=== PATIENT | female | born 1975 | race Caucasian/White ===

== ENCOUNTER 2016-11-26 14:56 | Inpatient (IN) | payer OTHER ==
[~2016-11-26] VITALS: Ht 165.1 cm; Wt 169.8 kg
--- NOTE | ~2016-11-26 | ST ---
[place], [place] EXERCISE STRESS TEST REPORT [facility]: [id number] UNIT #: [id number] ROOM: 503 DOCTOR: USMAN PEDROZA MD BIRTHDATE: [birth year] DOS: 11/27/2016 EXERCISE MYOCARDIAL PERFUSION STRESS TEST INDICATIONS: Precordial chest pain. PROCEDURE: The patient exercised on a full Matt protocol stress test for 5 minutes 15 seconds and achieved a maximum heart rate of 154, which represented 86% of her maximum predicted heart rate at a workload of 5 mets. She stopped for leg fatigue and dyspnea. She did not recreate her chest pain. Her resting electrocardiogram showed sinus rhythm and was a normal tracing. She did not have any diagnostic electrocardiographic changes with exertion. Her resting blood pressure of 112/72 aydee to 162/60 with exertion. One minute prior to completion of exercise protocol, she was given radionuclide intravenously. IMPRESSION: 1. Limited exercise capacity for age. The patient did achieve 86% of her maximum predicted heart rate and did not have chest pain or diagnostic electrocardiographic changes. 2. Nuñez treadmill score 5.25 consistent with a low risk of cardiac events in the next year. 3. Radionuclide injected. Please see the separate imaging report for further details of the patient's stress test results. USMAN PEDROZA MD CM:STRESS:EXERCISE STRESS TEST REPORT [id number] USMAN PEDROZA MD
--- NOTE | ~2016-11-26 | CON ---
[place], [place] REPORT OF CONSULTATION [id number] UNIT #: [id number] ROOM: 503 DOCTOR: USMAN PEDROZA MD BIRTHDATE: [birth year] DOS: 11/27/2016 CARDIOLOGY CONSULTATION The patient was seen at her bedside today on 11/27/2016 for evaluation of chest pain. CHIEF COMPLAINT: Left anterior chest discomfort. HISTORY OF PRESENT ILLNESS: The patient is a 40-year-old woman who has no previous history of heart disease. She does have several risk factors including type 2 diabetes mellitus and hypertension. She states that for several months or perhaps even years, she has had episodes of left anterior chest discomfort. She has a hard time describing the sensation. She states that she feels a tightness or fluttering sensation in her left chest. Occasionally, she will be pale and sweaty with this. It is occasionally sharp. It can last anywhere from seconds to all day. Yesterday while at work, she had several episodes, coworkers noted that she was uncomfortable and she was seen by the nurse at her place of employment. Her blood pressure was elevated and she was told to come to the Emergency Room. Upon arrival, her heart rate was 100 and blood pressure was 211/106. She was complaining of chest discomfort and dyspnea and therefore was admitted to the hospital for further assessment. PAST MEDICAL HISTORY: Includes; 1. Morbid obesity. The patient's current body mass index is 62.3 and she weighs 374 pounds. 2. Obstructive sleep apnea. The patient has a CPAP machine, but does not use it. 3. Type 2 diabetes mellitus. 4. Essential hypertension. 5. Tobacco abuse. The patient does smoke 1 pack of cigarettes a day. PAST SURGICAL HISTORY: History of cholecystectomy and previous section. REVIEW OF SYSTEMS: The patient denies diplopia, loss of vision or focal weakness. She denies syncope, although she does have occasional lightheadedness. She denies nausea or vomiting. She denies fevers, chills or sweats. She denies any recent weight change. She denies hemoptysis or hematemesis. She denies productive cough. She denies change in bowel or bladder habits and denies blood in her stools or urine. She denies any skin rashes. She denies any swelling in her arms, but she does have chronic ankle edema. She does note that she sleeps in a chair or in a recliner. The remainder of the review of systems is negative except as noted above. FAMILY HISTORY: There is no family history of early coronary disease. SOCIAL HISTORY: The patient lives alone. She works at a correctional facility, doing education including drug resistance, etc. [place], [place] REPORT OF CONSULTATION NAME: JENNIFER MEDLEY UNIT #: [id number] ROOM: [facility] DOCTOR: USMAN PEDROZA MD BIRTHDATE: [birth year] MEDICATIONS: The patient has no prescribed medications at this point because she has stopped going to physicians. She occasionally uses [id number] essential oils for headaches, etc. ALLERGIES: She has no known drug allergies. PHYSICAL EXAMINATION: GENERAL: The patient is an overweight white female who is awake, alert and oriented. VITAL SIGNS: Pulse is 80 and regular, blood pressure is 112/70. She is afebrile. She weighs 169.8 kg and has a body mass index of 62.3. HEENT: Normocephalic, atraumatic. Extraocular muscles are intact. Sclerae are clear. Pupils are equal, round and reactive to light. The oral mucosa is moist. Tongue is midline. NECK: Supple. She has no jugular distention or hepatojugular reflux. Carotids are full. I heard no bruits. She had no neck or supraclavicular masses. No thyromegaly. LUNGS: Respirations are unlabored. CHEST: Clear to auscultation and percussion. She has no presacral edema or chest wall tenderness. HEART: Has a regular rhythm. She has a fourth heart sound, but no third heart sound or murmur. The PMI is not displaced. She has no precordial heave, lift or thrill. ABDOMEN: Obese, but otherwise benign without masses, organomegaly or bruits. I could not reproduce her chest pain by palpation of her chest or her abdomen. EXTREMITIES: Showed no clubbing or cyanosis. She does have 1+ ankle edema present. Pedal pulses are full and equal bilaterally. LABORATORY DATA: I reviewed her EKG. It shows sinus rhythm and is essentially a normal tracing. Chest x-ray was normal. Serial cardiac biomarkers were unremarkable. Hemoglobin is 12.8, hematocrit 40.9, there are 8900 white cells, 311,000 platelets. Sodium 141, potassium 4.1, BUN 11, creatinine 0.71. Sugar was 159, hemoglobin A1c 7.6. TSH is normal at 2.23. A drug screen was negative for opiates, cannabinoids or cocaine. IMPRESSION: 1. Atypical chest pain. The patient's pains have been longstanding and unrelated to exertion. They come and go without provocation and there is no particular pattern to them. On the other hand, she does have multiple risk factors for heart disease and therefore, even though these seem unlikely to be cardiac in origin. A further cardiac workup and stress testing are appropriate. 2. Morbid obesity. 3. Tobacco abuse. 4. Essential hypertension exacerbated by obesity. 5. Type 2 diabetes mellitus, exacerbated by obesity. PLAN: I agree with the patient's medical care. I would stop furosemide because [place], [place] REPORT OF CONSULTATION NAME: JENNIFER MEDLEY UNIT #: [id number] ROOM: [facility] DOCTOR: USMAN PEDROZA MD BIRTHDATE: [birth year] I do not believe that she actually has heart failure. I do believe that she has dependent edema from her obesity and probably from her sleep apnea. I did encourage her to take medications as prescribed and to use her CPAP machine as prescribed as well. We will evaluate her further with a stress test and echocardiogram. I strongly encouraged her to quit smoking. Further recommendations will depend upon the results of her testing. I thank the hospitalist physicians for asking our advice regarding her care. USMAN PEDROZA MD CM:CONSTR:REPORT OF CONSULTATION 1146 11/28/16 0334 interface
[2016-11-26 15:07] VITALS: BP 211/106
[2016-11-26 15:31] LABS: BASO % 0.4 % (0.0-1.0); EOS # 0.2 10*3/uL (0.0-0.4); EOS % 1.9 % (1.0-4.0); HEMATOCRIT 40.9 % (37.0-47.0); HEMOGLOBIN 13.2 g/dl (12.0-16.0); LYMPH # 3.2 10*3/uL (1.3-4.4); LYMPH % 30.6 % (27.0-41.0); MEAN CORPUSCULAR HGB 27.4 pg (27.0-31.0); MEAN CORPUSCULAR HGB CONC 32.3 g/dl (33.0-37.0); MEAN PLATELET VOLUME 9.6 fl (9.6-12.3); MONO # 0.6 10*3/uL (0.1-1.0); MONO % 6.1 % (3.0-9.0); NEUT # 6.4 10*3/uL (2.3-7.9); NEUT % 60.7 % (47.0-73.0); PLATELET COUNT AUTOMATED 315 10*3/uL (130-400); RED BLOOD COUNT 4.81 10*6/uL (4.10-5.10); RED CELL DISTRI WIDTH 14.6 % (0-14.5); WHITE BLOOD COUNT 10.5 10*3/uL (4.8-10.8)
[2016-11-26 15:40] LABS: INTERNATIONAL NORM RATIO 0.9 (2.0-3.5); PROTHROMBIN TIME 9.8 SECONDS (9.0-12.4)
[2016-11-26 15:43] VITALS: BP 132/78
[2016-11-26 15:48] LABS: ALBUMIN 3.1 gm/dl (3.1-4.5); ALKALINE PHOSPHATASE 101 U/L (45-117); BILIRUBIN, TOTAL 0.3 mg/dl (0.2-1.0); BUN 12 mg/dl (7-24); CARBON DIOXIDE 28 mmol/L (21-32); CHLORIDE 103 mmol/L (98-107); EST GLOM FILT AFRICAN AMERICAN > 60 ml/min; GLUCOSE 153 mg/dL (65-99); POTASSIUM 3.8 mmol/L (3.5-5.1); SGOT/AST 28 IU/L (3-35); SGPT/ALT 39 U/L (12-78); SODIUM 139 mmol/L (136-145); TOTAL PROTEIN 7.5 gm/dL (6.4-8.2)
[2016-11-26 15:49] LABS: TROPONIN I < 0.015 ng/ml (<0.045)
[2016-11-26 17:21] VITALS: BP 157/92
[2016-11-26] MEDS ORDERED: LASIX20 MG PO (17:38)
[2016-11-26] MEDS ORDERED: METFORMIN500 MG PO (17:39)
[2016-11-26 18:35] LABS: CPK 46 U/L (26-192)
[2016-11-26 18:37] LABS: CKMB < 0.5 ng/ml (0.5-3.6); TROPONIN I < 0.015 ng/ml (<0.045)
[2016-11-26 20:00] VITALS: BP 137/80
[2016-11-27] VITALS: BP 131/76
[2016-11-27 00:32] LABS: CKMB 0.6 ng/ml (0.5-3.6); CPK 47 U/L (26-192)
[2016-11-27 00:35] LABS: TROPONIN I < 0.015 ng/ml (<0.045)
[2016-11-27 04:05] VITALS: BP 135/67
[2016-11-27 05:57] LABS: ALBUMIN 2.9 gm/dl (3.1-4.5); ALKALINE PHOSPHATASE 88 U/L (45-117); BILIRUBIN, TOTAL 0.5 mg/dl (0.2-1.0); BUN 11 mg/dl (7-24); CARBON DIOXIDE 29 mmol/L (21-32); CHLORIDE 104 mmol/L (98-107); CHOLESTEROL 171 mg/dL (<200); CPK 34 U/L (26-192); EST GLOM FILT AFRICAN AMERICAN > 60 ml/min; GLUCOSE 159 mg/dL (65-99); HDL CHOLESTEROL 37 mg/dl (40-60); LDL CHOLESTEROL 112 mg/dL (9-159); MAGNESIUM 2.1 mg/dL (1.5-2.1); PHOSPHOROUS 3.8 mg/dL (2.5-4.9); POTASSIUM 4.1 mmol/L (3.5-5.1); SGOT/AST 31 IU/L (3-35); SGPT/ALT 34 U/L (12-78); SODIUM 141 mmol/L (136-145); TRIGLYCERIDES 108 mg/dl (<150); VLDL CHOLESTEROL 22 mg/dL (6-40)
[2016-11-27 06:00] LABS: HEMOGLOBIN A1c 7.6 % (4.8-5.6)
[2016-11-27 06:01] LABS: CKMB < 0.5 ng/ml (0.5-3.6); TROPONIN I < 0.015 ng/ml (<0.045)
[2016-11-27 06:02] LABS: BASO % 0.3 % (0.0-1.0); EOS # 0.2 10*3/uL (0.0-0.4); EOS % 2.4 % (1.0-4.0); HEMATOCRIT 40.9 % (37.0-47.0); HEMOGLOBIN 12.8 g/dl (12.0-16.0); LYMPH # 2.8 10*3/uL (1.3-4.4); LYMPH % 31.1 % (27.0-41.0); MEAN CELL VOLUME 87.2 fl (81.0-99.0); MEAN CORPUSCULAR HGB 27.3 pg (27.0-31.0); MEAN CORPUSCULAR HGB CONC 31.3 g/dl (33.0-37.0); MEAN PLATELET VOLUME 9.7 fl (9.6-12.3); MONO # 0.5 10*3/uL (0.1-1.0); MONO % 5.7 % (3.0-9.0); NEUT # 5.4 10*3/uL (2.3-7.9); NEUT % 60.1 % (47.0-73.0); PLATELET COUNT AUTOMATED 311 10*3/uL (130-400); RED BLOOD COUNT 4.69 10*6/uL (4.10-5.10); WHITE BLOOD COUNT 8.9 10*3/uL (4.8-10.8)
[2016-11-27 06:26] LABS: PROTHROMBIN TIME 10.3 SECONDS (9.0-12.4)
[2016-11-27 06:48] LABS: URINE AMPHETAMINES < 1000 (1000ng/ml); URINE BARBITURATES < 200 (200ng/ml); URINE COCAINE < 300 (300ng/ml)
[2016-11-27 06:52] LABS: VITAMIN D, 25-HYDROXY 15.4 ng/mL (30-100)
[2016-11-27 06:53] LABS: FOLIC ACID 9.33 ng/mL (>5.38)
[2016-11-27 08:00] VITALS: BP 112/70
[2016-11-27 12:00] VITALS: BP 107/65
[2016-11-27] MEDS ORDERED: HYDR12.5C PO (15:53)
[2016-11-27] MEDS ORDERED: K-TAB20 MEQ PO (15:53)
[2016-11-27] MEDS ORDERED: METFORMIN500 MG PO (15:53)
[2016-11-27 16:00] VITALS: BP 130/73
== END 2016-11-27 16:53 | disposition home or self-care (01) | DRG 205 ==
LOC: ED 14:56 → EDHOLD 16:08 → 5E 16:26
PROVIDERS: Hospitalist; Internal Medicine; Student in an Organized Health Care Education/Training Program
PROC: 3E033HZ Introduction of Radioactive Substance into Peripheral Vein, Percutaneous Approach (ICD-10-PCS; principal; 2016-11-27)
PROC: 4A02XM4 Measurement of Cardiac Total Activity, External Approach (ICD-10-PCS; principal; 2016-11-27)
DX: M94.0 Chondrocostal junction syndrome [Tietze] (principal); E43 Unspecified severe protein-calorie malnutrition; I16.1 Hypertensive emergency; Z68.44 Body mass index [BMI] 60.0-69.9, adult; Z90.49 Acquired absence of other specified parts of digestive tract; F17.210 Nicotine dependence, cigarettes, uncomplicated; E11.65 Type 2 diabetes mellitus with hyperglycemia; G47.33 Obstructive sleep apnea (adult) (pediatric); E66.01 Morbid (severe) obesity due to excess calories; Z79.84 Long term (current) use of oral hypoglycemic drugs; Z79.899 Other long term (current) drug therapy

== ENCOUNTER → 2017-01-04 | Outpatient (CLI) | payer OTHER ==
[~2017-01-04] MED LIST: HYDR12.5C PO; K-TAB20 MEQ PO; LASIX20 MG PO; METFORMIN500 MG PO
== END ==
LOC: RESCLI 03:33
DX: Z76.0 Encounter for issue of repeat prescription (principal); F32.0 Major depressive disorder, single episode, mild; F51.05 Insomnia due to other mental disorder; F34.1 Dysthymic disorder; E66.09 Other obesity due to excess calories; F17.200 Nicotine dependence, unspecified, uncomplicated; I10 Essential (primary) hypertension; E11.65 Type 2 diabetes mellitus with hyperglycemia; F41.9 Anxiety disorder, unspecified

== ENCOUNTER → 2017-02-03 | Outpatient (CLI) | payer OTHER | END | disposition home or self-care (01) | LOC: RESCLI 01:39 | DX: E11.65 Type 2 diabetes mellitus with hyperglycemia (principal); I10 Essential (primary) hypertension; F17.200 Nicotine dependence, unspecified, uncomplicated; E66.01 Morbid (severe) obesity due to excess calories; F32.9 Major depressive disorder, single episode, unspecified; G47.33 Obstructive sleep apnea (adult) (pediatric); E55.9 Vitamin D deficiency, unspecified; F41.9 Anxiety disorder, unspecified ==

== ENCOUNTER → 2017-03-03 | Outpatient (CLI) | payer BC ==
[2017-03-03 08:44] LABS: ALBUMIN 3.3 gm/dl (3.1-4.5); ALKALINE PHOSPHATASE 82 U/L (45-117); BUN 13 mg/dl (7-24); CHLORIDE 102 mmol/L (98-107); CREATININE 0.86 mg/dL (0.55-1.02); POTASSIUM 4.1 mmol/L (3.5-5.1); SGOT/AST 44 IU/L (3-35); SGPT/ALT 55 U/L (12-78); SODIUM 135 mmol/L (136-145); TOTAL PROTEIN 7.4 gm/dL (6.4-8.2)
== END | disposition home or self-care (01) ==
LOC: LAB 00:31 → RESCLI 00:31
PROVIDERS: Internal Medicine Hospice and Palliative Medicine
DX: E11.65 Type 2 diabetes mellitus with hyperglycemia (principal); F34.1 Dysthymic disorder; E55.9 Vitamin D deficiency, unspecified

== ENCOUNTER → 2017-07-10 | Outpatient (CLI) | payer BC ==
[2017-07-13 07:06] LABS: HEPATITIS B SURFACE AG Negative (Negative); HEPATITIS C VIRUS ANTIBODY <0.1 s/co (0.0-0.9)
== END | disposition home or self-care (01) ==
LOC: LAB 09:03 → US 10:00
PROVIDERS: Nurse Practitioner Family
DX: K76.0 Fatty (change of) liver, not elsewhere classified (principal); Z90.49 Acquired absence of other specified parts of digestive tract

== ENCOUNTER 2017-11-19 07:46 | Emergency (ER) | payer BC ==
[~2017-11-19] VITALS: Ht 165.1 cm; Wt 167.8 kg
[2017-11-19] MEDS ORDERED: ZOLOFT25 MG PO (07:50)
[2017-11-19] MEDS ORDERED: Motrin,Rufen800 MG PO (08:57)
== END 2017-11-19 09:02 | disposition home or self-care (01) ==
LOC: ED 07:46
DX: R51 Headache (principal); F17.200 Nicotine dependence, unspecified, uncomplicated; E11.9 Type 2 diabetes mellitus without complications; I10 Essential (primary) hypertension; E66.01 Morbid (severe) obesity due to excess calories; G47.33 Obstructive sleep apnea (adult) (pediatric); Z79.899 Other long term (current) drug therapy; Z98.890 Other specified postprocedural states; Z90.49 Acquired absence of other specified parts of digestive tract

== ENCOUNTER 2019-05-06 20:16 | Inpatient (IN) | payer BC ==
[~2019-05-06] VITALS: Ht 165.1 cm; Wt 156.2 kg
[~2019-05-06 20:16] MED LIST changes: +Motrin,Rufen800 MG PO; +ZOLOFT25 MG PO
[2019-05-06] MEDS ORDERED: LISINOPRIL10 M1 PO (20:23)
[2019-05-06] MEDS ORDERED: ATORVASTATIN CA20 M1 PO (20:23)
[2019-05-06] MEDS ORDERED: BASAG SOL SQ (20:24)
[2019-05-06] MEDS ORDERED: FLUOXETINE HYDR20 M1 PO (20:24)
[2019-05-06 20:56] LABS: HEMATOCRIT 41.9 % (37.0-47.0); HEMOGLOBIN 12.8 g/dl (12.0-16.0); MEAN CELL VOLUME 88.8 fl (81.0-99.0); MEAN CORPUSCULAR HGB 27.1 pg (27.0-31.0); MEAN CORPUSCULAR HGB CONC 30.5 g/dl (33.0-37.0); MEAN PLATELET VOLUME 9.7 fl (9.6-12.3); PLATELET COUNT AUTOMATED 338 10*3/uL (130-400); RED BLOOD COUNT 4.72 10*6/uL (4.10-5.10); RED CELL DISTRI WIDTH 14.8 % (0-14.5); WHITE BLOOD COUNT 14.3 10*3/uL (4.8-10.8)
[2019-05-06 21:10] LABS: ALBUMIN 3.1 gm/dl (3.1-4.5); ALKALINE PHOSPHATASE 87 U/L (45-117); BUN 14 mg/dl (7-24); CHLORIDE 105 mmol/L (98-107); CREATININE 0.88 mg/dL (0.55-1.02); LIPASE 183 U/L (73-393); POTASSIUM 3.8 mmol/L (3.5-5.1); SGOT/AST 15 IU/L (3-35); SGPT/ALT 23 U/L (12-78); SODIUM 139 mmol/L (136-145); TOTAL PROTEIN 7.1 gm/dL (6.4-8.2)
[2019-05-06 21:18] LABS: BASOPHILS 1 % (0-1); TOTAL CELLS COUNTED 100 #CELLS
[2019-05-06 21:19] LABS: PLATELET SUFFICIENCY NORMAL (NORMAL)
--- NOTE | 2019-05-06 21:22 | NUR ---
PT REPORTS NO PAIN RELIEF WITH GI COCKTAIL.
[2019-05-06 21:27] LABS: BILIRUBIN NEGATIVE (NEGATIVE); BLOOD NEGATIVE (NEGATIVE); CLARITY CLEAR (CLEAR); COLOR YELLOW (YELLOW); GLUCOSE NEGATIVE (NEGATIVE); KETONE NEGATIVE (NEGATIVE); LEUKO ESTERASE NEGATIVE (NEGATIVE); NITRITE NEGATIVE (NEGATIVE); SPECIFIC GRAVITY 1.025 (1.005-1.030)
[2019-05-06 21:32] LABS: WBC 0-2 wbc/hpf (0-5)
[2019-05-06 21:33] LABS: BACTERIA 2+
[2019-05-06 21:56] VITALS: BP 126/75
--- NOTE | 2019-05-06 22:15 | NUR ---
TORADOL HELPED PAIN. PT REPORTS 08/28
--- NOTE | 2019-05-06 22:54 | NUR ---
PT TO CT
--- NOTE | 2019-05-06 23:14 | NUR ---
PT RETURNED TO ROOM FROM CT. REPORT TO HECTOR ROBLES
[2019-05-07 00:55] VITALS: BP 120/58
--- NOTE | 2019-05-07 00:55 | NUR ---
PATIENT ARRIVED FROM ER VIA WHEELCHAIR ESCORTED BY RN. PATIENT WAS ON ROOM AIR, UNMONITORED, AND NO IV FLUIDS RUNNING. PATIENT AMBULATED FROM WHEELCHAIR TO BED WITHOUT INCIDENT. ADMISSION ASSESSMENT, VITAL SIGNS AND QUESTIONS ANSWERED WITHOUT INCIDENT. PATIENT ORIENTED TO ROOM, CALL LIGHT, FLOOR, AND PLAN OF CARE. CALL LIGHT WITHIN REACH, WILL CONTINUE TO MONITOR. WAITING ON PHYSICIAN ORDERS AT THIS TIME.
[2019-05-07 01:05] VITALS: BP 114/58
--- NOTE | 2019-05-07 03:15 | NUR ---
PER DR. LUNA VERBAL ORDERS PATIENT MAY HAVE ICE CHIPS.
[2019-05-07 06:35] LABS: BASO % 0.3 % (0.0-1.0); EOS # 0.3 10*3/uL (0.0-0.4); EOS % 2.4 % (1.0-4.0); HEMATOCRIT 40.5 % (37.0-47.0); HEMOGLOBIN 12.4 g/dl (12.0-16.0); LYMPH # 3.3 10*3/uL (1.3-4.4); MEAN CELL VOLUME 88.8 fl (81.0-99.0); MEAN CORPUSCULAR HGB 27.2 pg (27.0-31.0); MEAN CORPUSCULAR HGB CONC 30.6 g/dl (33.0-37.0); MEAN PLATELET VOLUME 9.9 fl (9.6-12.3); MONO # 0.7 10*3/uL (0.1-1.0); MONO % 6.5 % (3.0-9.0); NEUT % 58.5 % (47.0-73.0); PLATELET COUNT AUTOMATED 328 10*3/uL (130-400); RED BLOOD COUNT 4.56 10*6/uL (4.10-5.10); RED CELL DISTRI WIDTH 14.9 % (0-14.5); WHITE BLOOD COUNT 10.3 10*3/uL (4.8-10.8)
[2019-05-07 06:50] LABS: BUN 17 mg/dl (7-24); CHLORIDE 105 mmol/L (98-107); CHOLESTEROL 153 mg/dL (<200); CREATININE 0.85 mg/dL (0.55-1.02); LIPASE 147 U/L (73-393); PHOSPHOROUS 3.8 mg/dL (2.5-4.9); POTASSIUM 3.9 mmol/L (3.5-5.1); SODIUM 139 mmol/L (136-145); TRIGLYCERIDES 104 mg/dl (<150); VLDL CHOLESTEROL 21 mg/dL (6-40)
[2019-05-07 06:59] LABS: FREE T4 1.06 ng/dl (0.76-1.46); HDL CHOLESTEROL 36 mg/dl (40-60); LDL CHOLESTEROL 96 mg/dL (9-159)
[2019-05-07 07:13] LABS: ACT PARTIAL THROMBO TIME 27.3 SECONDS (20.0-32.1); INTERNATIONAL NORM RATIO 0.9 (2.0-3.5)
--- NOTE | 2019-05-07 07:36 | NUR ---
24 HR chart check completed.
[2019-05-07 08:00] VITALS: BP 111/47; BP 118/50
[2019-05-07 08:37] LABS: VITAMIN D, 25-HYDROXY 17.8 ng/mL (30-100)
--- NOTE | 2019-05-07 09:30 | NUR ---
DR MIRANDA AND DR HARTMAN HERE TO ASSESS PATIENT AND DISCUSS PLAN OF CARE
--- NOTE | 2019-05-07 09:54 | NUR ---
RESTING IN BED. RESPIRATIONS EASY. LUNGS DIMINISHED, CLEAR. PULSE OX 93% RA. ABD SOFTLY OBESE WITH NORMOACTIVE BOWEL SOUNDS. C/O EPIGASTRIC PAIN/BURNING AND NAUSEA - MEDICATED WITH TORADOL AND ZOFRAN IV PER PRN ORDER. IV FLUIDS INFUSING PER ORDER. CALL LIGHT WITHIN REACH. WILL MONITOR
--- NOTE | 2019-05-07 11:15 | NUR ---
EARLIER MEDS APPEAR EFFECTIVE. RESTING WITH EYES CLOSED. RESPIRATIONS EASY. IV FLUIDS MAINTAINED. CALL LIGHT WITHIN REACH
[2019-05-07 12:00] VITALS: BP 125/72
[2019-05-07 16:00] VITALS: BP 133/83
--- NOTE | 2019-05-07 16:07 | NUR ---
REQUESTED AND RECEIVED TORADOL AND ZOFRAN IV PER PRN ORDER FOR COMPLAINTS OF EPIGASTRIC PAIN RATING A 7 AND NAUSEA. CALL LIGHT WITHIN REACH. WILL MONITOR FOR EFFECTIVENESS
--- NOTE | 2019-05-07 17:00 | NUR ---
EARLIER MEDS APPEAR EFFECTIVE. SLEEPING. RESPIRATIONS EASY. VSS. IV FLUIDS MAINTAINED. CALL LIGHT WITHIN REACH
[2019-05-07 20:00] VITALS: BP 131/85
--- NOTE | 2019-05-07 22:01 | NUR ---
PATIENT MEDICATED WITH TORADOL AND ZOFRAN FOR ABDOMINAL PAIN AND NAUSEA. RESPIRATIONS REGULAR AND NON-LABORED ON ROOM AIR. LUNGS DIMINISHED AND CLEAR. NORMAL SALINE 0.9% INFUSING AT 100CC/HR IV. PATIENT REMAINS NPO AT THIS TIME. AMBULATES TO BATHROOM PER SELF. WILL CONTINUE TO MONITOR. CALL LIGHT IN REACH.
[2019-05-08] VITALS: BP 126/82; BP 139/79
--- NOTE | 2019-05-08 05:28 | NUR ---
MEDICATED WITH TORADOL AND ZOFRAN FOR STOMACH PAIN AND NAUSEA. STATES PAIN SEEMS TO BE MOVING DOWN FURTHER. WILL CONTINUE TO MONITOR.
--- NOTE | 2019-05-08 07:01 | NUR ---
MEDICATED WITH TYLENOL FOR COMPLAINTS OF A HEADACHE.
[2019-05-08 07:16] LABS: BUN 15 mg/dl (7-24); CHLORIDE 107 mmol/L (98-107); CREATININE 0.83 mg/dL (0.55-1.02); LIPASE 95 U/L (73-393); POTASSIUM 4.1 mmol/L (3.5-5.1); SODIUM 139 mmol/L (136-145)
[2019-05-08 08:00] VITALS: BP 116/68
--- NOTE | 2019-05-08 09:00 | NUR ---
Terminal Makeup Operator in to talk to patient. Patient states lives at home with and children. There are few steps in the home. Physician: reji hale Pharmacy: [facility] Home health services: none Patient's level of ADLs: INDEPENDENT Patient has working utilities: all working DME: none Follow-up physician's appointment after d/c: will be made by hospitalist nurse director upon discharge Does patient want to access PORTAL?: no Discharge plan discussed with patient, she lives at home with and children she is independent in adls and ambulation, works, drives, she states she will be returning home when medically stable, she also asked to talk with some regarding payment if her insurance didn't pay, case management called Thi from [email or web address] and asked her to talk with patient, case management will follow. NICOLE ELLISON
--- NOTE | 2019-05-08 11:49 | NUR ---
PATIENT C/O PAIN AND SLIGHT NAUSEA. MEDICATED WITH ZOFRAN AND TORADOL PER PRN ORDERS. WILL CONTINUE TO MONITOR.
[2019-05-08 12:00] VITALS: BP 134/80
[2019-05-08 16:00] VITALS: BP 119/73
--- NOTE | 2019-05-08 17:57 | NUR ---
PATIENT C/O HER STOMACH FEELING UPSET. "I JUST DONT KNOW IF IM GASSY OR NEED TO MOVE MY BOWELS." MEDICATED WITH ZOFRAN PER PRN ORDER. WILL CONTINUE TO MONITOR.
[2019-05-08 20:00] VITALS: BP 135/80
--- NOTE | 2019-05-08 20:30 | NUR ---
MEDICATED WITH TORADOL FOR COMPLAINTS OF ABDOMINAL PAIN. SAID SHE WAS FEELING BETTER UNTIL SHE ATE. WILL CONTINUE TO MONITOR.
--- NOTE | 2019-05-08 21:20 | NUR ---
PATIENT STATED HER STOMACH QUIT HURTING SOON SHE HAD TORADOL. MEDICATED WITH TYLENOL AT THIS TIME FOR COMPLAINTS OF A HEADACHE. RESPIRATIONS REGULAR AND NON-LABORED. NO SIGNS OR SYMPTOMS OF DISTRESS NOTED. AMBULATES TO BATHROOM PER SELF. WILL CONTINUE TO MONITOR. CALL LIGHT IN REACH.
[2019-05-09] VITALS: BP 124/80
--- NOTE | 2019-05-09 05:52 | NUR ---
PATIENT MEDICATED WITH TORADOL, TYLENOL AND ZOFRAN FOR STOMACH UPSET AND HEADACHE. WILL CONTINUE TO MONITOR.
[2019-05-09 08:00] VITALS: BP 120/74
--- NOTE | 2019-05-09 08:00 | NUR ---
IN TO ROOM. PATIENT AWAKE, ALERT AND ORIENTED. NO STATED COMPLAINTS AT THIS TIME. NO S/S OF DISTRESS OR SOB NOTED. RESPIRATIONS ARE EASY AND REGULAR. PT STATES SHE FEELS MUCH BETTER TODAY AND VOICES DESIRE TO GO HOME. BED IN LOWEST LOCKED POSITION AND CALL LIGHT WITHIN REACH.
--- NOTE | 2019-05-09 09:00 | NUR ---
case management visits with patient, she states she will be discharged to home today and denies any home needs, she also stated that Thi from [facility] talked with her and helped her with her insurance questions
--- NOTE | 2019-05-09 10:00 | NUR ---
PT UP WALKING IN HALLWAY. GAIT IS STEADY. NO S/S OF DISTRESS OR SOB NOTED. PT STATES DESIRE TO GO HOME. WILL CONTINUE TO MONITOR.
--- NOTE | 2019-05-09 11:15 | NUR ---
Discharge instructions reviewed with patient/family. Patient receptive and verbalizes understanding. Follow-up care arranged. Written instructions given to patient/family. LUIS ALBERTO FORRESTER
== END 2019-05-09 11:15 | disposition home or self-care (01) | DRG 439 ==
LOC: ED 20:16 → 4E 05-07 00:20 → EDHOLD 05-07 00:20 → 4E 05-07 00:58
PROVIDERS: Internal Medicine; Physician Assistant; ADMIT Internal Medicine
DX: K85.90 Acute pancreatitis without necrosis or infection, unspecified (principal); E44.1 Mild protein-calorie malnutrition; Z68.43 Body mass index [BMI] 50.0-59.9, adult; D72.829 Elevated white blood cell count, unspecified; E11.65 Type 2 diabetes mellitus with hyperglycemia; E66.01 Morbid (severe) obesity due to excess calories; I10 Essential (primary) hypertension; G47.33 Obstructive sleep apnea (adult) (pediatric); E78.5 Hyperlipidemia, unspecified; F32.9 Major depressive disorder, single episode, unspecified; F17.210 Nicotine dependence, cigarettes, uncomplicated; Z71.6 Tobacco abuse counseling; Z90.49 Acquired absence of other specified parts of digestive tract; Z98.891 History of uterine scar from previous surgery; Z80.6 Family history of leukemia; Z83.3 Family history of diabetes mellitus; Z79.899 Other long term (current) drug therapy; Z79.84 Long term (current) use of oral hypoglycemic drugs

== ENCOUNTER → 2019-09-13 | Outpatient (CLI) | payer BC ==
[~2019-09-13] MED LIST changes: +ATORVASTATIN CA20 M1 PO; +BASAG SOL SQ; +FLUOXETINE HYDR20 M1 PO; +LISINOPRIL10 M1 PO
== END | disposition home or self-care (01) ==
LOC: LAB 16:33
DX: R06.02 Shortness of breath (principal)